=== PATIENT | male | born 1940 | race Caucasian/White ===

== ENCOUNTER 2016-10-30 09:07 | Emergency (ER) | payer OTHER ==
[~2016-10-30 09:07] MED LIST: LISINOPRIL; METFORMIN; NOVOLIN R100 UNITS/
== END 2016-10-30 09:09 | disposition home or self-care (01) ==
LOC: SED 09:07
DX: B02.9 Zoster without complications (principal); I10 Essential (primary) hypertension; E11.40 Type 2 diabetes mellitus with diabetic neuropathy, unspecified; Z79.4 Long term (current) use of insulin; Z88.6 Allergy status to analgesic agent
CPT/HCPCS: 96372; 99283; J1040